=== PATIENT | male | born 1935 | race Caucasian/White ===

== ENCOUNTER 2018-08-07 19:36 | Emergency (ER) | payer OTHER, SELFPAY ==
[2018-08-07 19:45] VITALS: BP 124/72; PULSE 89; RESP 18; TEMP 36.3; O2SAT 97
--- NOTE | 2018-08-07 21:17 | ED_ITS ---
HPI - Extremity Injury (Upper) General Chief Complaint: Wound/Laceration Stated Complaint: fall in to bushes, right forearm wound Time Seen by Provider: 08/07/18 21:17 Source: patient Mode of arrival: ambulatory Limitations: no limitations History of Present Illness HPI narrative: Patient is an 83-year-old male on Plavix and Coumadin here for evaluation to cuts and scrapes to his right upper extremity. Patient states that he tripped over his feet and fell into a french sustaining the wounds. He is up-to-date on his tetanus he cover them with a bandage. Has had some oozing because of his blood thinners. Came into the emergency department because he thought he could potentially need stitches Related Data Allergies Allergy/AdvReac Type Severity Reaction Status Date / Time From MOTRIN Allergy Unknown Uncoded 07/03/17 12:28 Review of Systems Constitutional Denies fever(s) and Denies headache(s) ENT Ears, Nose, Mouth, and Throat: Denies headache(s) Cardiovascular Denies chest pain, Denies palpitations and Denies dyspnea Respiratory Denies dyspnea Musculoskeletal Denies myalgias and Denies arthralgias Integumentary/Breasts Comments: Cut to the right forearm and also to the right hand Neurologic Denies headache(s) Endocrine Denies palpitations Hematologic/Lymphatic Reports easy bleeding and Reports easy bruising [facility] Medical History Coronary artery disease (Acute) Social History Smoking Status: Never smoker Social History Smoking Status: Never smoker Exam Initial Vital Signs Initial Vital Signs: Vital Signs Temperature 97.4 F L 08/07/18 19:45 Pulse Rate 89 08/07/18 19:45 Respiratory Rate 18 08/07/18 19:45 Blood Pressure 124/72 08/07/18 19:45 Pulse Oximetry 97 08/07/18 19:45 Const General: cooperative, well groomed and No acute distress Orientation: alert and awake Skin Other: 8 cm irregular and laceration to the right forearm. Has a 2nd 1 cm laceration near this. Has a 3rd 1 cm laceration on the back of his right hand. Neuro General: alert and awake Cognition: normal cognition Speech: speech normal Extrem General: normal to inspection and capillary refill normal Psych Appearance: grossly normal and well kempt Procedures Laceration Repair Laceration 1: Site: upper extremity Side (If applicable): right Size (cm): 8 Description: irregular Depth: simple, single layer Pre-repair: irrigated extensively Skin layer closed with: steri-strips Course Vital Signs - 8 hr 08/07/18 19:45 Temperature 97.4 F L Pulse Rate 89 Respiratory Rate 18 Blood Pressure 124/72 Pulse Oximetry 97 MDM - Extremity Injury (Upper) MDM Narrative Medical decision making narrative: Does. The patient had a mechanical fall. The lacerations of his upper extremity are very superficial. They were all closed with Steri-Strips. They do have some surrounding bruising. All of these are expected given his use of the anticoagulation. He was given care instructions. Will hold on any antibiotics for now. Patient was given care instructions and return precautions. He expressed understanding and agreement with plan. Discharge Plan Departure Patient Disposition: Home Clinical Impression: Laceration, Abrasion Discharge Date/Time: 08/07/18 22:10 Interventions: ED Discharge Assessment Last Done: 08/07/18 22:09 Instructions: DI for Laceration Repair Steri-Strips Activity Restrictions/Additional Instructions: Keep the Steri-Strips on until they fall off on their own. You can shower like normal. Continue all of your medications as directed. Return to the emergency department for any new or worsening symptoms
== END 2018-08-07 22:10 | disposition home or self-care (01) ==
PROVIDERS: Emergency Provider Emergency Medicine
DX: S51.811A Laceration without foreign body of right forearm, initial encounter (principal); W18.30XA Fall on same level, unspecified, initial encounter; Z79.01 Long term (current) use of anticoagulants; Z79.82 Long term (current) use of aspirin
CPT/HCPCS: 99282; 99283

== ENCOUNTER 2018-09-22 10:06 | Emergency (ER) | payer OTHER, SELFPAY ==
[2018-09-22 10:37] VITALS: BP 122/60; PULSE 77; RESP 18; TEMP 36.7; O2SAT 96
--- NOTE | 2018-09-22 11:27 | DI.CT.S_ITS ---
PROCEDURE: CT HEAD/BRAIN WO CON INDICATIONS: fall on thinners TECHNIQUE: Noncontrast 4.5 mm thick angled axial sections acquired from the foramen magnum to the vertex, with coronal and sagittal reformats. For radiation dose reduction, the following was used: automated exposure control, adjustment of mA and/or kV according to patient size. COMPARISON: None. FINDINGS: Image quality: Excellent. CSF spaces: Basal cisterns are patent. No extra-axial fluid collections. The ventricles are symmetric in size and shape. Brain: No intracranial bleeds or masses. There is cerebral volume loss for age, with resultant ventricular and sulcal prominence. There are periventricular and deep white matter chronic small vessel ischemic changes. There is intracranial internal carotid artery atherosclerosis. Skull and face: Calvarium and visualized facial bones appear intact, without suspicious lesions. Left anterior frontal scalp swelling. Sinuses: Visualized sinuses and mastoids are clear. IMPRESSION: No acute intracranial process. Left anterior frontal scalp swelling Dictated by: Aureliano Banda M.D. on 09/22/2018 at 11:44 Approved by: Aureliano Banda M.D. on 09/22/2018 at 11:46
--- NOTE | 2018-09-22 11:37 | ED.SKABFB ---
HPI - Skin/Abscess/Foreign Bdy <Niocle Holm, [employer] - Last Filed: 09/22/18 12:55> General Chief complaint: Skin/Abscess/Foreign Body Stated complaint: fell twice yesterday,skin tear Time Seen by Provider: 09/22/18 11:14 Source: patient and family Mode of arrival: ambulatory Limitations: no limitations History of Present Illness HPI narrative: The patient is an 83-year-old male heart valve replacement who presents with his for chief complaint of a skin tear after 2 ground level falls yesterday. The patient is [place], so he tripped going down the stairs twice. He complains of a skin tear on his left forearm that they could not stop bleeding as the patient is currently on Coumadin and Plavix. They did note that the patient hit his head on the 2nd fall, and has an abrasion on his forehead. He did not lose consciousness, no nausea or vomiting, but the states that he felt very woozy and tired after. She had difficulty keeping him awake yesterday. They state his tetanus is up-to-date. The patients states that she tried to clean up his wounds as best she could, but she cannot control the bleeding. The patient denies any neck or back pain. Denies any incontinence of bowel or bladder. He denies any saddle anesthesia. Related Data Home Medications Medication Instructions Recorded Confirmed albuterol sulfate 2 puff INHALATION PRN PRN 09/22/18 09/22/18 alendronate 70 mg PO QWEEK 09/22/18 09/22/18 calcium carbonate [Calcium 600] 600 mg PO BID 09/22/18 09/22/18 cholecalciferol (vitamin D3) 2,000 units PO DAILY 09/22/18 09/22/18 [Vitamin D3] clopidogrel 75 mg PO DAILY 09/22/18 09/22/18 folic acid 0.4 mg PO DAILY 09/22/18 09/22/18 hydroxychloroquine 200 mg PO BID 09/22/18 09/22/18 ipratropium-albuterol [Combivent 1 puff INHALATION QID 09/22/18 09/22/18 Respimat] metoprolol succinate 25 mg PO DAILY 09/22/18 09/22/18 [id number]-lycopen-lutein 1 tab PO DAILY 09/22/18 09/22/18 [Centrum Silver] potassium chloride [Klor-Con 10] 10 meq PO DAILY 09/22/18 09/22/18 torsemide 20 mg PO TID 09/22/18 09/22/18 warfarin [Coumadin] 1 dose PO QPM 09/22/18 09/22/18 Allergies Allergy/AdvReac Type Severity Reaction Status Date / Time latex Allergy rips skin Verified 09/22/18 10:43 off From MOTRIN Allergy Unknown swelling Uncoded 09/22/18 10:42 Review of Systems <FLORIN Lloyd - Last Filed: 09/22/18 12:55> Review of Systems GENERAL: Denies chills, fatigue, malaise, fever, sweats. HEENT: Denies sinus pain, ear pain, sore throat, difficulty swallowing, dizziness. RESPIRATORY: Denies dyspnea, cough, wheezing, hemoptysis, sputum. CARDIOVASCULAR: Denies chest pain, palpitations, orthopnea, edema, GASTROINTESTINAL: Denies nausea, vomiting, abdominal pain, diarrhea, constipation, melena. : Denies dysuria, frequency, incontinence, hematuria, urinary retention. MUSCULOSKELETAL: denies weakness, joint pain, or bony pain SKIN: See HPI NEUROLOGIC: See HPI PSYCHIATRIC: No concerning psychosocial issues. 12 point review of systems is negative except for those stated above PFSH <FLORIN Lloyd - Last Filed: 09/22/18 12:55> Medical History Coronary artery disease (Acute) Social History Smoking Status: Former smoker Social History Smoking Status: Former smoker Exam <FLORIN Lloyd - Last Filed: 09/22/18 12:55> Narrative Exam Narrative: GENERAL: This is a well-nourished, well-developed patient, no acute distress with at bedside HEAD: Atraumatic. Normocephalic. No temporal or scalp tenderness. EYES: Pupils equal round and reactive. Extraocular motions intact. No scleral icterus. No injection or drainage. ENT: Nose without bleeding, purulent drainage or septal hematoma. Throat without erythema, tonsillar hypertrophy or exudate. Uvula midline. Airway patent. NECK: Trachea midline. No JVD or lymphadenopathy. Supple, nontender, no meningeal signs. CARDIOVASCULAR: Regular rate and rhythm without murmurs, gallops, or rubs. RESPIRATORY: Clear to auscultation. Breath sounds equal bilaterally. No wheezes, rales, or rhonchi. No cough. No increased respiratory effort. No cough. No increased respiratory effort. No accessory muscle use. GASTROINTESTINAL: Abdomen soft, non-tender, nondistended. No hepato-splenomegaly, or palpable masses. No guarding. EXTREMITIES: No clubbing, cyanosis, or edema. No joint tenderness, effusion, or edema noted. BACK: Nontender without deformity or crepitance. No flank tenderness. No pain to C-spine T-spine or L-spine palpation. Stable gait. Strength is equal upper and lower extremities bilaterally. NEURO: AOx3. No cranial nerve deficit. Stable gait. Strength is equal upper and lower extremities bilaterally. SKIN: 3 cm x 2 cm abrasion noted superior to left eye. 3 cm irregular skin tear noted left forearm. Some skin appears to be missing. No obvious wound contamination. Irregular. No obvious muscle or tendon involvement. Through dermis, appears to not going to deeper tissue. Initial Vital Signs Initial Vital Signs: Vital Signs Temperature 98.0 F 09/22/18 10:37 Pulse Rate 77 09/22/18 10:37 Respiratory Rate 18 09/22/18 10:37 Blood Pressure 122/60 09/22/18 10:37 Pulse Oximetry 96 09/22/18 10:37 <Rachana Garcia MD - Last Filed: 09/22/18 19:20> Initial Vital Signs Initial Vital Signs: Vital Signs Temperature 98.0 F 09/22/18 10:37 Pulse Rate 77 09/22/18 10:37 Respiratory Rate 18 09/22/18 10:37 Blood Pressure 122/60 09/22/18 10:37 Pulse Oximetry 96 09/22/18 10:37 Scores <DESTINI Lloyd-BC - Last Filed: 09/22/18 12:55> GCS Wilmot coma scale eye opening: Spontaneous Tanisha coma scale verbal response: Orientated Tanisha coma scale motor response: Obey commands Tanisha coma scale total score: 15 Nexus Score for C-Spine Focal Neurologic deficit present: No Midline spinal tenderness present: No Altered level of conciousness present: No Intoxication present: No Distracting Injury Present: No Nexus Criteria for C-spine: 0 Course <FLORIN Lloyd - Last Filed: 09/22/18 12:55> Orders Ordered: ED Orders 09/22/18 11:27 CT head/brain wo con Stat Vital Signs - 8 hr 09/22/18 12:28 Pulse Rate 76 Respiratory Rate 18 Blood Pressure [Right Arm] 110/59 L Pulse Oximetry 98 <Rachana Garcia MD - Last Filed: 09/22/18 19:20> Orders Ordered: ED Orders 09/22/18 11:27 CT head/brain wo con Stat Vital Signs - 8 hr 09/22/18 12:28 Pulse Rate 76 Respiratory Rate 18 Blood Pressure [Right Arm] 110/59 L Pulse Oximetry 98 MDM - Skin/Abscess/Foreign Bdy <FLORIN Lloyd - Last Filed: 09/22/18 12:55> Imaging Data CT scan - head: Radiologist's impression: [place] [address] CT Scan Report Signed Patient: Luis Alberto Villarreal MMR#: [id number] : 5Acct:[id number] Age/Sex: 83 / MDate of Service: 09/22/18 Loc: ED Accession Number: [id number] Procedure: CT head/brain wo con Ordering Provider: Nicole Holm PROCEDURE: CT HEAD/BRAIN WO CON INDICATIONS: fall on thinners TECHNIQUE: Noncontrast 4.5 mm thick angled axial sections acquired from the foramen magnum to the vertex, with coronal and sagittal reformats. For radiation dose reduction, the following was used: automated exposure control, adjustment of mA and/or kV according to patient size. COMPARISON: None. FINDINGS: Image quality: Excellent. CSF spaces: Basal cisterns are patent. No extra-axial fluid collections. The ventricles are symmetric in size and shape. Brain: No intracranial bleeds or masses. There is cerebral volume loss for age, with resultant ventricular and sulcal prominence. There are periventricular and deep white matter chronic small vessel ischemic changes. There is intracranial internal carotid artery atherosclerosis. Skull and face: Calvarium and visualized facial bones appear intact, without suspicious lesions. Left anterior frontal scalp swelling. Sinuses: Visualized sinuses and mastoids are clear. IMPRESSION: No acute intracranial process. Left anterior frontal scalp swelling Dictated by: Aureliano Banda M.D. on 09/22/2018 at 11:44 Approved by: Aureliano Banda M.D. on 09/22/2018 at 11:46 MDM Narrative Medical decision making narrative: The patient is an 83-year-old male who presents with chief complaint of skin tears and abrasions after ground level fall twice yesterday. He has a negative head CT, which I obtained due to obvious head trauma on blood thinners. However he is GCS 15, neurologically intact. This subsequently came back with no evidence of acute intracranial process. I discussed at length follow up with primary care provider, I am concerned given the patient's repeat falls specially on blood thinners. The patient and state that this is baseline for him and that his PCP is well aware. Discussed at length monitoring his abrasions for signs and symptoms of infection such as redness pus etc. Encouraged PCP follow-up. Discussed coming back to the ER for any acute concerns such as chest pain, shortness of breath etc. Discharge Plan Departure Patient Disposition: Home Clinical Impression: Fall from ground level, Skin tear, Abrasion Discharge Date/Time: 09/22/18 12:57 Interventions: ED Discharge Assessment Last Done: 09/22/18 12:56 Instructions: How to Prevent Falls, DI for Abrasion Activity Restrictions/Additional Instructions: Your head CT shows no intracranial abnormality. We have cleaned and dressed your wounds. Please monitor for signs and symptoms of infection such as redness pus etc Please follow up with primary care provider, especially given your repeat falls on blood thinners. Please come back to the emergency department for any acute concerns such as chest pain, shortness of breath confusion etc Prescriptions: No Action torsemide 20 mg Tablet 20 mg PO TID RF: 0 alendronate 70 mg Tablet 70 mg PO QWEEK RF: 0 potassium chloride [Klor-Con 10] 10 mEq Tablet Extended Release 10 meq PO DAILY RF: 0 clopidogrel 75 mg tablet 75 mg PO DAILY RF: 0 folic acid 400 mcg Tablet 0.4 mg PO DAILY RF: 0 calcium carbonate [Calcium 600] 600 mg calcium (1,500 mg) Tablet 600 mg PO BID RF: 0 warfarin [Coumadin] 5 mg Tablet 1 dose PO QPM RF: 0 metoprolol succinate 25 mg Tablet Extended Release 24 Hr 25 mg PO DAILY RF: 0 hydroxychloroquine 200 mg Tablet 200 mg PO BID RF: 0 albuterol sulfate 90 mcg/actuation Hfa Aerosol Inhaler 2 puff INHALATION PRN PRN (Reason: Shortness Of Breath) RF: 0 Centrum Silver 0.4-300-250 mg-mcg-mcg Tablet 1 tab PO DAILY RF: 0 cholecalciferol (vitamin D3) [Vitamin D3] 2,000 unit Capsule 2,000 units PO DAILY RF: 0 Combivent Respimat 20-100 mcg/actuation Mist 1 puff inhalation QID RF: 0
[2018-09-22 12:28] VITALS: BP 110/59; PULSE 76; RESP 18; O2SAT 98
--- NOTE | 2018-09-22 12:53 | PC.NURSE ---
no need for dressing to forehead abrasion, instructed pt to clean with soap and water and leave to air. Dressed skin tear on his left forearm that had stopped bleeding by the time I went to dress it. Cleaned site and redressed sending pt home with left over dressing materials and instructions how to use them. Pt and understand these instructions.
== END 2018-09-22 12:57 | disposition home or self-care (01) ==
PROVIDERS: Emergency Provider Nurse Practitioner Family
DX: S51.812A Laceration without foreign body of left forearm, initial encounter (principal); S00.81XA Abrasion of other part of head, initial encounter; W10.8XXA Fall (on) (from) other stairs and steps, initial encounter; Z79.01 Long term (current) use of anticoagulants
CPT/HCPCS: 70450; 99282; 99284